=== PATIENT | female | born 1955 | race Caucasian/White ===

== ENCOUNTER 2020-10-20 10:46 | Outpatient (CLI) | payer MEDICARE, OTHER ==
[2020-10-20 17:53] LABS: SARS-CoV-2 PCR by NAA Not Detected (NotDetected)
== END 2020-10-20 10:47 | disposition home or self-care (01) ==
LOC: LABBT 10:46
PROVIDERS: ATTEND Family Medicine
DX: Z01.812 Encounter for preprocedural laboratory examination (principal); Z20.822 Contact with and (suspected) exposure to COVID-19
CPT/HCPCS: U0003; U0005; 87635

== ENCOUNTER 2020-10-25 06:25 | Day surgery (SDC) | payer MEDICARE, OTHER ==
[2020-10-21 13:40] VITALS: BMI 40.1
[2020-10-25] MEDS ORDERED: Fentanyl 100 MCG/2 ML VIAL ONE (06:29)
[2020-10-25] MEDS ORDERED: Phenylephrine 2.5% Ophth Soln 5 ML BOT ONE (06:29)
[2020-10-25] MEDS ORDERED: Cyclopentolate 1% Ophth Drops 15 ML BOT ONE (06:29)
[2020-10-25] MEDS ORDERED: PROPOFOL 20 ML ONE (06:29)
[2020-10-25] MEDS ORDERED: Midazolam HCl 2 mg/2 ml Vial ONE (06:29)
[2020-10-25] MEDS ORDERED: EPINEPHrine 0.3 MG in Ophthalmic Irrigation Solution 500 ML IRR SCH (06:30)
[2020-10-25] MEDS ORDERED: Maxitrol 0.1% Opth Oint 3.5 GM TUBE ONE (07:42)
[2020-10-25] MEDS ORDERED: Bupivacaine PF 0.75% SDV 10 ML ONE (07:42)
[2020-10-25] MEDS ORDERED: Triamcinolone 40 MG/ML VIAL ONE (07:42)
[2020-10-25] MEDS ORDERED: Indocyanine Green 25 MG/10 ML VIAL ONE (07:42)
[2020-10-25] MEDS ORDERED: Lidocaine 4% PF 5 ML AMP ONE (07:42)
[2020-10-25] MEDS ORDERED: PROPOFOL 200 MG/20 ML VIAL ONE (07:42)
== END 2020-10-25 09:20 | disposition home or self-care (01) ==
LOC: SDC 06:25
PROVIDERS: ATTEND Ophthalmology Retina Specialist
PROC: 08T43ZZ Resection of Right Vitreous, Percutaneous Approach (ICD-10-PCS; principal; 2020-10-25)
PROC: 08NE3ZZ Release Right Retina, Percutaneous Approach (ICD-10-PCS; 2020-10-25)
DX: H35.341 Macular cyst, hole, or pseudohole, right eye (principal); I10 Essential (primary) hypertension; E78.5 Hyperlipidemia, unspecified; F17.210 Nicotine dependence, cigarettes, uncomplicated; E66.01 Morbid (severe) obesity due to excess calories; Z68.41 Body mass index [BMI] 40.0-44.9, adult; Z79.82 Long term (current) use of aspirin; Z79.899 Other long term (current) drug therapy; Z88.0 Allergy status to penicillin
CPT/HCPCS: 67025; J0171; J2250; J2704; J3010; J3301; J3490